=== PATIENT | female | born 2000 | race Caucasian/White ===

== ENCOUNTER → 2023-04-01 | Outpatient (CLI) | payer OTHER ==
[2023-04-01 16:48] LABS: HEMATOCRIT 32.6 % (36.0-47.0); HEMOGLOBIN 10.9 g/dl (12.0-15.5); MEAN CORPUSCULAR HEMOGLOBIN 31.2 pg (27.0-33.0); MEAN CORPUSCULAR HGB CONC 33.4 g/dl (32.0-36.5); MEAN CORPUSCULAR VOLUME 93.4 fl (80.0-96.0); PLATELET COUNT, AUTOMATED 425 10^3/uL (150-450); RED BLOOD COUNT 3.49 10^6/uL (4.00-5.40); WHITE BLOOD COUNT 8.5 10^3/uL (4.0-10.0)
[2023-04-01 17:06] LABS: GC DNA AMPLIFICATION NEGATIVE (NEGATIVE)
== END ==
LOC: M PLALAB 12:30
PROVIDERS: ATTEND Specialist
DX: Z34.02 Encounter for supervision of normal first pregnancy, second trimester (principal)

== ENCOUNTER → 2023-04-17 | Outpatient (REF) | payer OTHER | LOC: M SFHCPLAZ 17:00 | PROVIDERS: ATTEND Obstetrics & Gynecology | DX: N39.0 Urinary tract infection, site not specified (principal) ==

== ENCOUNTER → 2023-05-02 | Outpatient (REF) | payer OTHER | LOC: M SFHCWAGY 13:18 | PROVIDERS: ATTEND Specialist | DX: O23.43 Unspecified infection of urinary tract in pregnancy, third trimester (principal) ==

== ENCOUNTER → 2023-05-30 | Outpatient (REF) | payer OTHER | LOC: M PLALAB 09:09 | PROVIDERS: ATTEND Advanced Practice Midwife | DX: Z34.03 Encounter for supervision of normal first pregnancy, third trimester (principal) ==

== ENCOUNTER → 2023-06-12 | Outpatient (CLI) | payer OTHER | LOC: M WHC 11:52 | PROVIDERS: ATTEND Advanced Practice Midwife | DX: Z34.03 Encounter for supervision of normal first pregnancy, third trimester (principal) ==

== ENCOUNTER 2023-06-24 11:30 | Outpatient (CLI) | payer OTHER ==
[~2023-06-24] VITALS: Ht 160 cm; Wt 67.5 kg
[2023-06-24] MEDS ORDERED: ACET-907 PO (11:44)
[2023-06-24 11:52] VITALS: BP 108/71
[2023-06-24] MEDS ORDERED: LR 1,000 ML IV SCH (12:05)
[2023-06-24] MEDS ORDERED: LACTATED RINGER'S 1000 ML IV ONE (12:05)
[2023-06-24] MEDS ORDERED: ACETAMINOPHEN 500 MG TAB PO PRN (12:05)
[2023-06-24] MEDS ORDERED: ONDANSETRON 4MG 2ML VIAL IV PRN (12:10)
[2023-06-24 12:38] LABS: HEMATOCRIT 33.5 % (36.0-47.0); HEMOGLOBIN 11.1 g/dl (12.0-15.5); MEAN CORPUSCULAR HEMOGLOBIN 26.9 pg (27.0-33.0); MEAN CORPUSCULAR HGB CONC 33.1 g/dl (32.0-36.5); MEAN CORPUSCULAR VOLUME 81.3 fl (80.0-96.0); PLATELET COUNT, AUTOMATED 312 10^3/uL (150-450); RED BLOOD COUNT 4.12 10^6/uL (4.00-5.40); WHITE BLOOD COUNT 10.6 10^3/uL (4.0-10.0)
[2023-06-24 13:03] VITALS: BP 105/55
[2023-06-24 13:08] LABS: ALBUMIN 2.4 G/DL (3.2-5.2); ALKALINE PHOSPHATASE 236 U/L (46-116); ALT/SGPT 28 U/L (7.0-40); AST/SGOT 24 U/L (<34); BILIRUBIN,TOTAL 0.6 MG/DL (0.3-1.2); BLOOD UREA NITROGEN 6 MG/DL (9-23); CALCIUM LEVEL 8.6 MG/DL (8.5-10.1); CARBON DIOXIDE LEVEL 20 MMOL/L (20-31); CHLORIDE LEVEL 101 MMOL/L (98-107); CREATININE FOR GFR 0.47 MG/DL (0.55-1.30); GLOMERULAR FILTRATION RATE > 60.0 (>60); GLUCOSE, FASTING 74 MG/DL (60-100); POTASSIUM SERUM 3.7 MMOL/L (3.5-5.1); SODIUM LEVEL 134 MMOL/L (136-145); TOTAL PROTEIN 6.6 G/DL (5.7-8.2)
[2023-06-24 14:00] LABS: APPEARANCE, URINE CLOUDY (CLEAR); BACTERIA, URINE AUTO 3+ (NEGATIVE); BILIRUBIN, URINE AUTO NEGATIVE (NEGATIVE); BLOOD, URINE BLOOD NEGATIVE (NEGATIVE); COLOR, URINE AMBER (YELLOW); GLUCOSE, URINE (UA) AUTO NEGATIVE (NEGATIVE); KETONE, URINE AUTO TRACE mg/dL (NEGATIVE); LEUKOCYTE ESTERASE, URINE AUTO 3+ (NEGATIVE); MUCUS, URINE SMALL (NEGATIVE); NITRITE, URINE AUTO POSITIVE (NEGATIVE); PROTEIN, URINE AUTO NEGATIVE (NEGATIVE); RBC, URINE AUTO 4 /HPF (0-3); SQUAMOUS EPITHELIAL CELL UR AU 12 /HPF (0-6); WBC, URINE AUTO TNTC /HPF (0-3)
[2023-06-24] MEDS ORDERED: CEPH500C PO (14:28)
[2023-06-24] MEDS ORDERED: cefTRIAXone SOD 1 GM in D5W MINI-BAG PLUS 50 ML IV ONE (15:00)
== END 2023-06-24 15:35 | disposition home or self-care (01) ==
LOC: M LDO 11:30
PROVIDERS: ATTEND Advanced Practice Midwife
DX: O23.43 Unspecified infection of urinary tract in pregnancy, third trimester (principal); Z3A.39 39 weeks gestation of pregnancy
CPT/HCPCS: 59025; 80053; 81001; 85027; 87088; 87186; 87486; 87581; 87633; 87798; 96374; 96376; G0463; J0696; J2405

== ENCOUNTER 2023-06-26 16:25 | Inpatient (IN) | payer OTHER ==
[~2023-06-26] VITALS: Ht 160 cm; Wt 67.6 kg
[2023-06-26] VITALS (23 sets, daily range): BP systolic 97–134; BP diastolic 54–73
[~2023-06-26 16:25] MED LIST: ACET-907 PO; CEPH500C PO
[2023-06-26] MEDS ORDERED: LACTATED RINGER'S 1000 ML IV STA (16:36)
[2023-06-26] MEDS ORDERED: TRANEXAMIC ACID INJection 1,000 MG in NS 100 ML IV PRN (16:40)
[2023-06-26] MEDS ORDERED: METHYLERGONOVINE MALEATE 0.2MG/ML 1ML VIAL IM PRN (16:40)
[2023-06-26] MEDS ORDERED: OXYTOCIN INJ 10UNITS/ML 1ML VIAL IM PRN (16:40)
[2023-06-26] MEDS ORDERED: LIDOCAINE 1% MDV 20ML VIAL INFIL PRN (16:40)
[2023-06-26] MEDS ORDERED: OXYTOCIN DRIP 30 UNITS in IV 1 EA IV PRN (16:40)
[2023-06-26] MEDS ORDERED: CARBOPROST TROMETHAMINE 250 MCG/ML AMP IM PRN (16:40)
[2023-06-26] MEDS ORDERED: PENICILLIN G POTASSIUM 5 MU IV 5 MU in D5W MINI-BAG PLUS 100 ML IV STA (16:43)
[2023-06-26 17:26] LABS: HEMATOCRIT 34.7 % (36.0-47.0); HEMOGLOBIN 11.3 g/dl (12.0-15.5); MEAN CORPUSCULAR HGB CONC 32.6 g/dl (32.0-36.5); PLATELET COUNT, AUTOMATED 322 10^3/uL (150-450); RED BLOOD COUNT 4.18 10^6/uL (4.00-5.40); WHITE BLOOD COUNT 6.5 10^3/uL (4.0-10.0)
[2023-06-26 18:17] LABS: HIV 1&2 SCREEN NEGATIVE (NEGATIVE)
[2023-06-26] MEDS ORDERED: ePHEDrine SULFATE 25 MG/5 ML(5MG/ML) SYRINGE IVP PRN (19:55)
[2023-06-26] MEDS ORDERED: NALOXONE INJ 0.4MG/1ML VIAL IV PRN (19:55)
[2023-06-26] MEDS ORDERED: ONDANSETRON 4MG 2ML VIAL IV PRN (19:55)
[2023-06-26] MEDS ORDERED: diphenhydrAMINE 50MG/ML VIAL IV PRN (19:55)
[2023-06-26] MEDS ORDERED: EPIDURAL/PCA KEYS XX PRN (19:55)
[2023-06-26] MEDS ORDERED: LR 500 ML IV PRN (19:55)
[2023-06-26] MEDS: FENTANYL/ROPIVACAINE/NACL BAG 100 ML EPIDURAL SCH (20:00)
[2023-06-26] MEDS ORDERED: OXYTOCIN DRIP 30 UNITS in IV 1 EA IV SCH (21:45)
[2023-06-26] MEDS: PEN G POT 3,000,000 UNIT/50 ML 3,000,000 UNIT in IV 1 EA IV SCH (21:47)
[2023-06-27] VITALS (34 sets, daily range): BP systolic 93–138; BP diastolic 51–80
[2023-06-27] MEDS: PEN G POT 3,000,000 UNIT/50 ML 3,000,000 UNIT in IV 1 EA IV SCH ×3 (03:19→10:56)
[2023-06-27] MEDS: FENTANYL/ROPIVACAINE/NACL BAG 100 ML EPIDURAL SCH ×2 (04:21→12:13)
[2023-06-27] MEDS: LR 1,000 ML IV SCH ×2 (06:43→15:59)
[2023-06-27] MEDS ORDERED: ACETAMINOPHEN 500 MG TAB PO ONE (14:55)
[2023-06-27] MEDS ORDERED: AMPICILLIN SOD/SULBACTAM SOD 3 GM in D5W MINI-BAG PLUS 100 ML IV ONE (15:30)
[2023-06-27 18:44] LABS: CORD GAS ABE A -9.1; CORD GAS ABE V -6.3; CORD GAS HCO3 A 20.1 MMOL/L; CORD GAS O2 SAT A 50.2 %; CORD GAS O2 SAT V 55.3 %; CORD GAS PCO2 A 56.5 mmHg; CORD GAS PCO2 V 47.7 mmHg; CORD GAS PH A 7.169 UNITS; CORD GAS PH V 7.261 UNITS; CORD GAS PO2 A 24.9 mmHg; CORD GAS PO2 V 24.3 mmHg; CORD GAS SBC A 16.2 MMOL/L; CORD GAS SBC V 18.4 MMOL/L; CORD GAS TCO2 A 21.8 MMOL/L; CORD GAS TCO2 V 22.4 MMOL/L
[2023-06-27] MEDS ORDERED: ANUSOL HC CREAM 30GM TOP PRN (20:20)
[2023-06-27] MEDS ORDERED: OXYTOCIN DRIP 30 UNITS in IV 1 EA IV SCH (20:20)
[2023-06-27] MEDS ORDERED: DOCUSATE SODIUM 100MG CAPSULE PO PRN (20:20)
[2023-06-27] MEDS ORDERED: MOM 30ML SUSPENSION UDC PO PRN (20:20)
[2023-06-27] MEDS ORDERED: ACETAMINOPHEN TAB 650MG DOSE (2X325MG) PO PRN (20:20)
[2023-06-27] MEDS ORDERED: RHOGAM 300MCG (1500IU) INJ IM SCH (20:20)
[2023-06-27] MEDS ORDERED: METHYLERGONOVINE MALEATE 0.2 MG TAB PO PRN (20:20)
[2023-06-27] MEDS ORDERED: DIBUCAINE 1% OINTMENT 30GM TOP PRN (20:20)
[2023-06-27] MEDS: IBUPROFEN 800 MG TAB PO PRN (21:14)
[2023-06-28] MEDS: ACETAMINOPHEN 500 MG TAB PO PRN ×2 (00:51→22:52)
[2023-06-28 06:00] VITALS: BP 103/53; O2SAT 97
[2023-06-28] MEDS: PRENATAL VITAMINS CHEWABLE TABLET PO SCH (07:52)
[2023-06-28] MEDS: IBUPROFEN 600MG TAB PO PRN ×3 (07:52→22:52)
[2023-06-28 18:00] VITALS: BP 101/55; O2SAT 98
[2023-06-29 06:00] VITALS: BP 109/66; O2SAT 98
[2023-06-29] MEDS: PRENATAL VITAMINS CHEWABLE TABLET PO SCH (08:28)
[2023-06-29] MEDS ORDERED: MEASLES,MUMPS,RUBELLA VACCINE INJ (MMR-II) SC.IMMUN ONE (09:00)
[2023-06-29] MEDS ORDERED: IBUP80TA PO (09:56)
[2023-06-29] MEDS: IBUPROFEN 800 MG TAB PO PRN (12:56)
== END 2023-06-29 19:21 | disposition home or self-care (01) | DRG 807 ==
LOC: M LDO 16:25 → M LDI 16:35 → M OBS 06-27 21:45
PROVIDERS: ADMIT Advanced Practice Midwife; ATTEND Obstetrics & Gynecology
PROC: 10E0XZZ Delivery of Products of Conception, External Approach (ICD-10-PCS; principal; 2023-06-27)
PROC: 0HQ9XZZ Repair Perineum Skin, External Approach (ICD-10-PCS; 2023-06-27)
DX: O99.824 Streptococcus B carrier state complicating childbirth (principal); Z37.0 Single live birth; Z3A.39 39 weeks gestation of pregnancy; O70.0 First degree perineal laceration during delivery

== ENCOUNTER → 2023-12-30 | Outpatient (REF) | payer OTHER ==
[~2023-12-30] MED LIST changes: +IBUP80TA PO
== END ==
LOC: M SFHCWAGY 11:07
PROVIDERS: ATTEND Obstetrics & Gynecology
DX: Z01.419 Encounter for gynecological examination (general) (routine) without abnormal findings (principal)

== ENCOUNTER → 2024-06-09 | Outpatient (REF) | payer OTHER ==
[2024-06-11 12:42] LABS: BVAB 2 NEGATIVE (NEGATIVE); CANDIDA ALBICANS NAA NOT DETECTED (NOT DETECTED); CANDIDA GLABRATA NAA NOT DETECTED (NOT DETECTED); TRICH VAG BY NAA NOT DETECTED (NOT DETECTED)
[2024-06-11 14:18] LABS: CHLAMYDIA TRACHOMATIS NAA NOT DETECTED (NOT DETECTED); Neisseria gonorrhoeae NAA NOT DETECTED (NOT DETECTED)
== END ==
LOC: M SFHCWAGY 13:06
PROVIDERS: ATTEND Obstetrics & Gynecology
DX: N76.0 Acute vaginitis (principal)